=== PATIENT | female | born 1950 | race Caucasian/White ===

== ENCOUNTER 2019-05-29 20:57 | Observation (INO) ==
[2019-05-30] MEDS ORDERED: Naloxone 0.4 MG/ML INJ IVP PRN (00:21)
[2019-05-30] MEDS ORDERED: *HR* Heparin 5,000 UNIT/ML VIAL IVP ONE (03:39)
[2019-05-30] MEDS ORDERED: *HR* Heparin 5,000 UNIT/ML VIAL IVP PRN ×2 (03:39)
[2019-05-30] MEDS: Heparin 25,000 UNIT/250 ML D5W 25,000 UNIT/250 ML IV.SOLN IVC SCH ×2 (04:57→23:42)
[2019-05-30 06:02] LABS: Basophils % 0.4 %; Eosinophils % 0.2 %; Hematocrit 36.3 % (35.3-44.9); Hematocrit 37.3 % (35.3-44.9); Hemoglobin 12.4 g/dL (11.5-15.4); Hemoglobin 12.5 g/dL (11.5-15.4); Immature Granulocytes % 0.5 % (0-4); Lymphocytes # 1.6 K/mcL (0.6-4.6); Lymphocytes % 19.7 %; Mean Corpuscular HGB Conc 33.2 g/dL (31.6-35.5); Mean Corpuscular HGB Conc 34.4 g/dL (31.6-35.5); Mean Corpuscular Hemoglobin 31.5 pg (28.0-33.3); Mean Corpuscular Hemoglobin 32.6 pg (28.0-33.3); Mean Corpuscular Volume 94.7 fL (83.0-100.0); Mean Corpuscular Volume 94.8 fL (83.0-100.0); Mean Platelet Volume 10.3 fL (9.4-12.4); Mean Platelet Volume 10.4 fL (9.4-12.4); Monocytes # 0.9 K/mcL (0.0-1.3); Monocytes % 11.1 %; Neutrophils # 5.6 K/mcL (1.6-8.9); Platelet Count 172 K/mcL (140-400); Platelet Count 189 K/mcL (140-400); Red Blood Count 3.83 M/mcL (3.82-4.97); Red Blood Count 3.94 M/mcL (3.82-4.97); Red Cell Distribution Width 15.4 % (11.5-14.5); Segmented Neutrophils % 68.1 %; White Blood Count 8.3 K/mcL (4.3-11.1)
[2019-05-30 06:07] LABS: INR 2.5; Prothrombin Time 28.6 Seconds (9.4-12.1)
[2019-05-30 06:10] LABS: Heparin anti-factor XA UFH > 2.00 IU/mL (0.30-0.70)
[2019-05-30 06:36] LABS: Troponin I 0.71 ng/mL (< 0.04)
[2019-05-30 07:22] LABS: Magnesium 1.5 mg/dL (1.6-2.6)
[2019-05-30] MEDS ORDERED: Perflutren Lipid Microsphere 1.3 ML in 0.9 % Sodium Chloride 8.7 ML IVP ONE (10:11)
[2019-05-30] MEDS ORDERED: *HR* Phytonadione 5 MG TABLET PO ONE (11:00)
[2019-05-30] MEDS: Metoprolol XL (24 HR) Succ 25 MG TAB.ER.24H PO SCH (12:14)
[2019-05-30] MEDS: Aspirin 81 MG TAB.CHEW PO SCH (12:14)
[2019-05-30] MEDS ORDERED: *HR* LORazepam 2 MG/ML VIAL IVP ONE (16:59)
[2019-05-30] MEDS ORDERED: Haloperidol Lactate 5 MG/ML VIAL IVP PRN (17:06)
[2019-05-30 21:09] LABS: Alanine Aminotransferase 58 Units/L (7-52); Aspartate Amino Transferase 50 Units/L (13-39); BUN/Creatinine Ratio 10 (6-26); Blood Urea Nitrogen 8 mg/dL (8-23); Calcium 8.8 mg/dL (8.6-10.3); Carbon Dioxide 21 mEq/L (23-29); Chloride 95 mEq/L (98-107); Glucose 125 mg/dL (70-105); Magnesium 1.8 mg/dL (1.6-2.6); Osmolality,Calculated 274 (280-300); Potassium 3.8 mEq/L (3.5-5.1); Sodium 132 mEq/L (136-145); eGFR For African Americans > 60 (> 60); eGFR For Non-African Americans > 60 (> 60)
[2019-05-31 00:26] LABS: Heparin anti-factor XA UFH < 0.04 IU/mL (0.30-0.70)
[2019-05-31] MEDS ORDERED: Acetaminophen 325 MG TABLET PO PRN (07:00)
[2019-05-31 08:35] LABS: Basophils # 0.1 K/mcL (0.0-0.2); Basophils % 0.7 %; Eosinophils % 0.5 %; Hematocrit 45.1 % (35.3-44.9); Immature Granulocytes % 0.8 % (0-4); Lymphocytes # 2.2 K/mcL (0.6-4.6); Lymphocytes % 25.6 %; Mean Corpuscular HGB Conc 33.3 g/dL (31.6-35.5); Mean Corpuscular Hemoglobin 31.8 pg (28.0-33.3); Mean Corpuscular Volume 95.6 fL (83.0-100.0); Mean Platelet Volume 10.2 fL (9.4-12.4); Monocytes % 11.1 %; Neutrophils # 5.3 K/mcL (1.6-8.9); Platelet Count 200 K/mcL (140-400); Red Blood Count 4.72 M/mcL (3.82-4.97); Red Cell Distribution Width 15.7 % (11.5-14.5); Segmented Neutrophils % 61.3 %; White Blood Count 8.7 K/mcL (4.3-11.1)
[2019-05-31] MEDS: Gabapentin 300 MG CAPSULE PO SCH ×3 (08:47→21:35)
[2019-05-31] MEDS: lisinopriL 5 MG TABLET PO SCH (08:48)
[2019-05-31] MEDS: Metoprolol XL (24 HR) Succ 25 MG TAB.ER.24H PO SCH (08:48)
[2019-05-31] MEDS: levETIRAcetam 250 MG TABLET PO SCH ×2 (08:48→21:34)
[2019-05-31] MEDS: Baclofen 10 MG TABLET PO SCH ×4 (08:48→21:34)
[2019-05-31] MEDS: Aspirin 81 MG TAB.CHEW PO SCH (08:48)
[2019-05-31] MEDS: Cholecalciferol (D-3) 1,000 UNIT (25MCG) TABLET PO SCH (08:49)
[2019-05-31 08:51] LABS: Prothrombin Time 11.7 Seconds (9.4-12.1)
[2019-05-31 08:54] LABS: Alanine Aminotransferase 56 Units/L (7-52); Albumin 3.7 g/dL (3.5-5.7); Albumin/Globulin Ratio 1.2 (1.1-2.2); Alkaline Phosphatase 71 Units/L (34-104); Aspartate Amino Transferase 51 Units/L (13-39); BUN/Creatinine Ratio 12 (6-26); Bilirubin,Total 0.6 mg/dL (0.3-1.0); Blood Urea Nitrogen 10 mg/dL (8-23); Calcium 9.1 mg/dL (8.6-10.3); Carbon Dioxide 19 mEq/L (23-29); Chloride 97 mEq/L (98-107); Glucose 139 mg/dL (70-105); Osmolality,Calculated 281 (280-300); Potassium 3.7 mEq/L (3.5-5.1); Sodium 135 mEq/L (136-145); Total Protein 6.7 g/dL (6.4-8.9); eGFR For African Americans > 60 (> 60); eGFR For Non-African Americans > 60 (> 60)
[2019-05-31 20:30] LABS: Amphetamine Screen,Urine Negative ng/mL (Cutoff=1000); Barbiturate Screen,Urine Negative ng/mL (Cutoff=200); Benzodiazepines Screen,Urine Negative ng/mL (Cutoff=200); Cannabinoid Screen,Urine Negative ng/mL (Cutoff = 50); Cocaine Screen,Urine Negative ng/mL (Cutoff= 300); Opiate Screen,Urine Negative ng/mL (Cutoff=300); Phencyclidine Screen,Urine Negative ng/mL (Cutoff=25)
[2019-05-31] MEDS ORDERED: predniSONE 20 MG TABLET PO ONE (21:00)
[2019-05-31] MEDS: rOPINIRole 0.25 MG TABLET PO SCH (21:33)
[2019-05-31] MEDS: Melatonin 3 MG TABLET PO SCH (21:34)
[2019-05-31] MEDS: traZODone 50 MG TABLET PO SCH (21:35)
[2019-05-31] MEDS: Heparin 25,000 UNIT/250 ML D5W 25,000 UNIT/250 ML IV.SOLN IVC SCH (21:36)
[2019-06-01 00:50] LABS: Hematocrit 37.4 % (35.3-44.9); Mean Corpuscular HGB Conc 32.9 g/dL (31.6-35.5); Mean Corpuscular Hemoglobin 31.5 pg (28.0-33.3); Mean Corpuscular Volume 95.7 fL (83.0-100.0); Mean Platelet Volume 10.2 fL (9.4-12.4); Platelet Count 150 K/mcL (140-400); Red Blood Count 3.91 M/mcL (3.82-4.97); Red Cell Distribution Width 15.5 % (11.5-14.5); White Blood Count 6.4 K/mcL (4.3-11.1)
[2019-06-01 00:51] LABS: Hemoglobin 12.3 g/dL (11.5-15.4)
[2019-06-01 01:11] LABS: BUN/Creatinine Ratio 16 (6-26); Blood Urea Nitrogen 11 mg/dL (8-23); Calcium 8.4 mg/dL (8.6-10.3); Carbon Dioxide 23 mEq/L (23-29); Chloride 96 mEq/L (98-107); Glucose 132 mg/dL (70-105); Osmolality,Calculated 273 (280-300); Potassium 3.8 mEq/L (3.5-5.1); Sodium 131 mEq/L (136-145); eGFR For African Americans > 60 (> 60); eGFR For Non-African Americans > 60 (> 60)
[2019-06-01] MEDS ORDERED: predniSONE 20 MG TABLET PO ONE (07:00)
[2019-06-01] MEDS: Cholecalciferol (D-3) 1,000 UNIT (25MCG) TABLET PO SCH (07:27)
[2019-06-01] MEDS: lisinopriL 5 MG TABLET PO SCH (07:27)
[2019-06-01] MEDS: Aspirin 81 MG TAB.CHEW PO SCH (07:27)
[2019-06-01] MEDS: Gabapentin 300 MG CAPSULE PO SCH ×3 (07:27→21:44)
[2019-06-01] MEDS: Baclofen 10 MG TABLET PO SCH ×4 (07:28→21:43)
[2019-06-01] MEDS: Metoprolol XL (24 HR) Succ 25 MG TAB.ER.24H PO SCH (07:28)
[2019-06-01] MEDS: levETIRAcetam 250 MG TABLET PO SCH ×2 (07:28→21:43)
[2019-06-01 11:03] LABS: Prothrombin Time 11.2 Seconds (9.4-12.1)
[2019-06-01] MEDS ORDERED: Heparin 1,000 UNITS/500 mL 500 ML ONE (12:51)
[2019-06-01] MEDS ORDERED: *HR* Heparin 10,000 UNIT/10 ML VIAL ONE (12:51)
[2019-06-01] MEDS ORDERED: Nitroglycerin 1,000 MCG/10 ML VIAL IV ONE (12:51)
[2019-06-01] MEDS ORDERED: ISOVUE-370 200 ML INFUS..BTL ONE (12:51)
[2019-06-01] MEDS ORDERED: 0.9 % Sodium Chloride 2,000 ML ONE (12:51)
[2019-06-01] MEDS ORDERED: *HR* Midazolam HCl 2 MG/2 ML VIAL ONE (13:17)
[2019-06-01] MEDS: rOPINIRole 0.25 MG TABLET PO SCH (21:44)
[2019-06-01] MEDS: Melatonin 3 MG TABLET PO SCH (21:44)
[2019-06-01] MEDS: traZODone 50 MG TABLET PO SCH (21:44)
[2019-06-02 00:37] LABS: Hematocrit 35.5 % (35.3-44.9); Hemoglobin 11.9 g/dL (11.5-15.4); Mean Corpuscular HGB Conc 33.5 g/dL (31.6-35.5); Mean Corpuscular Hemoglobin 32.2 pg (28.0-33.3); Mean Corpuscular Volume 95.9 fL (83.0-100.0); Mean Platelet Volume 10.7 fL (9.4-12.4); Platelet Count 170 K/mcL (140-400); Red Cell Distribution Width 15.5 % (11.5-14.5)
[2019-06-02 00:41] LABS: White Blood Count 9.7 K/mcL (4.3-11.1)
[2019-06-02 00:56] LABS: BUN/Creatinine Ratio 15 (6-26); Blood Urea Nitrogen 11 mg/dL (8-23); Calcium 8.4 mg/dL (8.6-10.3); Carbon Dioxide 23 mEq/L (23-29); Chloride 100 mEq/L (98-107); Glucose 135 mg/dL (70-105); Osmolality,Calculated 273 (280-300); Sodium 131 mEq/L (136-145); eGFR For African Americans > 60 (> 60); eGFR For Non-African Americans > 60 (> 60)
[2019-06-02] MEDS: lisinopriL 5 MG TABLET PO SCH (09:25)
[2019-06-02] MEDS: levETIRAcetam 250 MG TABLET PO SCH (09:25)
[2019-06-02] MEDS: Baclofen 10 MG TABLET PO SCH (09:25)
[2019-06-02] MEDS: Aspirin 81 MG TAB.CHEW PO SCH (09:26)
[2019-06-02] MEDS: Metoprolol XL (24 HR) Succ 25 MG TAB.ER.24H PO SCH (09:26)
[2019-06-02] MEDS: Gabapentin 300 MG CAPSULE PO SCH (09:26)
[2019-06-02] MEDS: Cholecalciferol (D-3) 1,000 UNIT (25MCG) TABLET PO SCH (09:26)
[2019-06-02] MEDS ORDERED: Lactobacillus 1 EACH CAP.SPRINK PO SCH (10:15)
[2019-06-02] MEDS ORDERED: Ranolazine 500 MG TAB.ER.12H PO SCH (11:15)
[2019-06-02 11:59] VITALS: BP 109/72
== END 2019-06-02 13:01 | disposition home health service (06) ==
LOC: 2ANU → SUATTDRO 23:00 → 2ANU 23:45
PROVIDERS: ADMIT Internal Medicine; ATTEND Internal Medicine